=== PATIENT | female | born 1995 | race Caucasian/White ===

== ENCOUNTER 2025-04-24 10:01 | Inpatient (IN) | payer BC ==
[2025-04-24 10:11] VITALS: BMI 25.0
[2025-04-24] MEDS ORDERED: Diphenoxylate HCl/Atropine Tablet PO PRN (12:11)
[2025-04-24] MEDS ORDERED: Ibuprofen 800 MG TAB PO PRN (12:11)
[2025-04-24] MEDS ORDERED: hydrALAZINE 20 MG/ML VIAL SLOW IVP PRN (12:11)
[2025-04-24] MEDS ORDERED: HYDROcodone/Acetaminophen 5/325 mg Tablet PO PRN (12:11)
[2025-04-24] MEDS ORDERED: Lidocaine 1% (PF) 30 ML VIAL SC PRN (12:11)
[2025-04-24] MEDS ORDERED: Ondansetron PF 4 MG/2 ML Vial IVP PRN (12:11)
[2025-04-24] MEDS ORDERED: Carboprost 250 MCG/ML AMP IM PRN (12:11)
[2025-04-24] MEDS ORDERED: Methylergonovine 0.2 MG/ML VIAL IM PRN (12:11)
[2025-04-24] MEDS ORDERED: Oxytocin 30 units/NS 500 ML 500 ML IV SCH (12:15)
[2025-04-24 12:29] LABS: Hematocrit 35.2 % (34.9-44.5); Hemoglobin 12.1 g/dL (12.0-15.5); Mean Corpuscular Hemoglobin 29.1 pg (27.0-33.0); Mean Corpuscular Volume 84.6 fL (81.6-98.3); Platelet Count 248 10x3/uL (150-450); Red Blood Cell (RBC) Count 4.16 10x6/uL (3.90-5.03); White Blood Cell (WBC) Count 15.35 10x3/uL (3.5-10.5)
[2025-04-24 12:57] LABS: Syphilis Antibody Index 0.03 S/CO (<1.00 Non-Reactive)
[2025-04-24 12:59] LABS: Hep B Surf Ag - L&D Non-Reactive S/CO (NonReactive)
[2025-04-25] MEDS: Acetaminophen 500 MG TAB PO PRN (03:21)
[2025-04-25] MEDS: Oxytocin 30 units/NS 500 ML 500 ML IV SCH (03:23)
[2025-04-25] MEDS: fentaNYL/Ropivacaine Epidural 100 ML ONE (09:14)
[2025-04-25] MEDS ORDERED: diphenhydrAMINE 50 MG/ML VIAL IVP PRN (09:19)
[2025-04-25] MEDS ORDERED: Acetaminophen 325 MG TAB PO PRN (09:19)
[2025-04-25] MEDS ORDERED: Ondansetron PF 4 MG/2 ML Vial IVP PRN ×2 (09:19→12:55)
[2025-04-25] MEDS ORDERED: fentaNYL 2 mcg/Ropivacaine 0.2% Epidural 100 ML CADD EPIDURAL SCH (09:30)
[2025-04-25] MEDS ORDERED: Communication Order-Pharmacy FS SCH (09:30)
[2025-04-25] MEDS ORDERED: Lanolin Ointment 7 GM TUBE TOP PRN (12:55)
[2025-04-25] MEDS ORDERED: Preparation H Ointment 28 GM TUBE PR PRN (12:55)
[2025-04-25] MEDS ORDERED: Benzocaine-Menthol 82.5 ML CAN TOP PRN (12:55)
[2025-04-25] MEDS ORDERED: Bisacodyl 10 MG SUPP PR PRN (12:55)
[2025-04-25] MEDS ORDERED: Milk Of Magnesia 30 ML UDCUP PO PRN (12:55)
[2025-04-25] MEDS ORDERED: diphenhydrAMINE 25 MG CAP PO PRN (12:55)
[2025-04-25] MEDS ORDERED: hydrALAZINE 20 MG/ML VIAL SLOW IVP PRN (12:55)
[2025-04-25] MEDS ORDERED: HYDROcodone/Acetaminophen 5/325 mg Tablet PO PRN ×2 (12:55)
[2025-04-25] MEDS: Boostrix 0.5 ML (Tdap) VIAL (>/=7 yrs of age) IM ONE (13:55)
[2025-04-25] MEDS: Ibuprofen 800 MG TAB PO SCH (15:43)
[2025-04-25] MEDS: Ferrous Sulfate 325 MG TAB PO SCH (16:48)
[2025-04-26 08:32] VITALS: BP 113/67; TEMP 98.2
== END 2025-04-26 16:10 | disposition home or self-care (01) | DRG 807 ==
LOC: CSHLD 10:01 → CSHPP 04-25 13:39
PROVIDERS: ADMIT Student in an Organized Health Care Education/Training Program; ATTEND Student in an Organized Health Care Education/Training Program
PROC: 10D07Z6 Extraction of Products of Conception, Vacuum, Via Natural or Artificial Opening (ICD-10-PCS; principal; 2025-04-25)
PROC: 0UQMXZZ Repair Vulva, External Approach (ICD-10-PCS; 2025-04-25)
DX: O42.02 Full-term premature rupture of membranes, onset of labor within 24 hours of rupture (principal); Z37.0 Single live birth; Z3A.39 39 weeks gestation of pregnancy; O76 Abnormality in fetal heart rate and rhythm complicating labor and delivery; O26.893 Other specified pregnancy related conditions, third trimester; Z67.41 Type O blood, Rh negative; O71.82 Other specified trauma to perineum and vulva
CPT/HCPCS: 36415; 85027; 85461; 86780; 86850; 86870; 86900; 86901; 87340; 90384; 96372; J2590; J7120